=== PATIENT | female | born 1990 | race Caucasian/White ===

== ENCOUNTER 2025-05-30 20:22 | Outpatient (REF) | payer OTHER, SELFPAY ==
--- OUTSIDE RECORDS SUMMARY | 2024-08-19 03:09 | XMS_ITS | Continuity of Care Document ---
Author Organization [facility] Address [address] [place] [address] Phone Care Team Providers Care Insurance Counsel Name Role Phone Fernando Richard Unavailable Unavailable Allergies, Adverse Reactions, Alerts Substance Reaction Status Criticality No Known Allergies Active No Inform ation Procedures Procedure Date OFFICE/OUTPATIENT VISIT, [facility] ROUTINE VENIPUNCTURE PREV VISIT, EST, AGE 18-39 ROUTINE VENIPUNCTURE PREV VISIT, EST, AGE 18-39 OFFICE/OUTPATIENT VISIT, [facility] URINALYSIS NONAUTO W/O SCOPE Advance Directives Directive Yes / No Effective Date File Name No Information Encounters Encounter Description Practice Location Reason(s) For Visit Diagnoses Date Provider Providers Copied on Encounter [facility], [address], [place], [id number], tel:[phone] [facility] No Information Burke Reeves. [address], [place], [id number] , [place]. tel:[phone] OFFICE/OUTPAT IENT VISIT, EST [facility], [address], [place], [id number], [place] tel:[phone] [facility] Infertility (chief complaint) Body mass index [BMI] 38.0-38.9, adultFemale infertility, primaryPCOS (polycystic ovarian syndrome)Obesit y (BMI 35.0-39.9 without comorbidity) 3 Burke Reeves. [address] [place] [address], [id number] , . tel: [phone] PREV VISIT, EST, AGE 18-39 [facility], [address], [place], [id number], tel:[phone] [facility] Annual (chief complaint)lab draw (chief complaint) Encounter for general adult medical examination without abnormal findingsBody mass index [BMI] 39.0-39.9, adult Dec- 3- 3 Toward MD Stokes. [address] [place] [address], [id number] , . tel: [phone] PREV VISIT, EST, AGE 18-39 [facility], [address] [place] [address], [id number], tel:[phone] [facility] annual exam (chief complaint) Encounter for gynecological examination (general) (routine) without abnormal findingsPelvic painBody mass index [BMI]40.0-44.9, adult- STD screen- STD High risk heterosexual behavior 3 Gavino [facility] Nelida. [address] [place] [address], [id number] , . tel: [phone] OFFICE/OUTPAT IENT VISIT, [facility], [address] [place] [address], [id number], tel:[phone] [facility] Est Care (chief complaint) DysuriaBody mass index [BMI] 37.0-37.9, adult 3 Toward MD Stokes. [address] [place] [address], [id number] , . tel: [phone] Family History Family Member Type Diagnosis Age At Onset Father Problem illegal drug use Mother Problem depression Mother Problem Diabetes mellitus Mother Problem Obesity Father Problem alcoholism Payers Payer name Insurance type Covered green party ID Authoriza pierce(s) [employer] CI [id number] Social History Type Description Quantity Date Captured Comments Alcohol Use Details Unknown Caffeine Use Details Unknown Tobacco Use Status No Information Smoking Status No Information Sex Female Sexual Orientation Straight or heterosexual Gender Identity Female Chief Complaint And Reason For Visit No Information Reason For Referral Reason For Referral No Information Plan Of Treatment Date Type Action Status Goal Depression screening. Due on due Goal Unhealthy drug use screening . Due on due Goal Hepatitis C screening. Due o n due Goal PRAPARE ASSESSMENT. Due on due Goal Influenza vaccine. Due on due Goal Lipid panel. Due on due Goal Tdap Vaccine. Due on 2024 due Goal Tdap. Due on due Goal RLP. Due on due Goal HPV. Due on due Goal Tdap. Due on due Goal RLP. Due on due Goal Influenza vaccine. Due on due Goal Lipid panel. Due on due Goal PRAPARE ASSESSMENT. Due on due Goal Tdap Vaccine. Due on 2022 due Goal Depression screening. Due on due Goal Weight-reducing diet educati on completed Goal Hep A. Due on du e Goal Influenza vaccine. Due on due Goal PRAPARE ASSESSMENT. Due on due Goal RLP. Due on due Goal Tdap Vaccine. Due on 2022 due Goal Lipid panel. Due on due Goal Tdap. Due on due Goal Depression screening. Due on due Goal Lifestyle education regardin g diet completed Goal Depression screening. Due on due Goal PRAPARE ASSESSMENT. Due on due Goal Tdap. Due on due Goal Influenza vaccine. Due on due Goal RLP. Due on due Goal Tdap Vaccine. Due on 2022 due Goal Dietary management education , guidance, and counseling completed Goal Depression screening. Due on due Goal PRAPARE ASSESSMENT. Due on due Goal Tdap. Due on due Goal Influenza vaccine. Due on due Goal RLP. Due on due Goal Tdap Vaccine. Due on 2022 due Goal Dietary management education , guidance, and counseling completed Referral Ordered: US EXAM, PELVIC, COMPLETE Appointment date/timeframe: 12/29/2022 ordered History Of Present Illness Encounter Date Complaint History Of Prese nt Illness Infertility The menstrual cy ramesh length is 30 Days(s) Patient not . Presenting / Initial symptoms include hirsutism and infertility. The patient's relevant history is positive for insulin resistance, obesity, oral contraceptive use and polycystic ovary syndrome. Associated symptoms include infertility and menstrual cramping. Pertinent negatives include acne, alopecia, back pain, bleeding between menses, bloating, breast tenderness, clitoral enlargement, constipation, cyclic pelvic pain, decreased libido, difficulty concentrating, difficulty sleeping, dyspareunia, fatigue, galactorrhea, hirsutism, hot flashes, male pattern hair loss, nausea, ovulatory pain, pelvic pain, vaginal dryness, weight loss or voice changes.Additional information: , Has PCOS-saw [facility] and was told to lose weight. Wants . Has lost 30 lbs. Menses q 30 days, 5 days-heavy for 2-3 with clots/cramps. Was on BCPs. Annual Pt is here for a nnual wellness with labs. Pt denies issues or concerns at this time. Pt denies alcohol and tobacco use. //ALBIN Llanos lab draw Labs drawn x1 RA C. 2x2 and bandage applied. //ALBIN Llanos annual exam Currently pregna nt: no. Patient is contemplating . The patient states she uses none for control. Last LMP was 12/08/2022. Her menses is regular with normal flow with a frequency of every other mon. Negative for dysmenorrhea and menorrhagia. Negative for: breast discharge, breast lump(s), breast pain and breast self exam. Additional information: Patient is here for annual exam. States she was Dx with PCOS as a teenager. She gets a menses monthly, but the are irregular. She and her partner have been together for 4 years and would desires a . Neither one has children. States she was seeing Dr. Hussein at [facility] and did not like the care she was receiving. She was to transfer to a different physician, but was told she couldn't. That is why she is establishing care here. She desires to start a work up to determine if she can get in the future. . Est Care Pt here today to est care. Pt states had a previous PCP and then quit and seen Althea Dhaliwal at [facility] and did not like that provider. Pt states in Nov went to urgent care had UTI and thinks its back. Was given ATB in May . Pt c/o foul smelling urine, burning with urination, lower back pain. states symptoms been going on for about 1 month and has gotten worse. Has tried fluids, cranberry juice w/o relief. Pt denies any fevers. Voices no other issues or concerns at this time. Sun. As above, has had s/s for about a month. Has issues with constipation that is not typical for her, no vag d/c, does have PCOS and irregular periods. Denies fever or chills. Has had many UTI in her life, at least once a year of adult life. She is a former smoker quit in 2018 and vaped until 6 mos ago. no EtOH, caffeine 12 -16 oz coffee and also does 4 energy drinks per week. Cannabis is negative, denies otc meds and products. She has painful periods and fertility issues, was told it was all PCOS but has not gotten better with wt loss or rx, got worse with OCP for example. Needs a new WHP. Gets insurance in November so wants to do f/u then. MD LEFTY. Functional Status Date Functional Assessmen t No Information Instructions Date Instruction Additional Infor matcherelle Giving encouragement to exercise Related to Body mass index [BMI] 38.0-38.9, adult Weight-reducing diet education R elated to Body mass index [BMI] 38.0-38.9, adult Giving encouragement to exercise Related to Body mass index [BMI] 39.0-39.9, adult Lifestyle education regarding di et Related to Body mass index [BMI] 39.0-39.9, adult C/O pelvic pain, but does not want OCPs to regulate or help with PCOS as she desires a in the near future. Pelvic sonogram ordered for further evaluation. Recommend Motrin 800mg PRN Related to Pelvic pain Cervical cultures se nt to lab. Patient to call in 1 week for results Related to - STD screen Encouraged monthly B SE. Recommend calcium 1000mg QD. Encouraged good dietary intake and exercise. Laboratory specimens sent to lab. Patient to call in 2 weeks if desires results.Discussed control options and patient desires none as she desires a in the near futureAppt made with Dr. Turk for further evaluation of pelvic pain associated with PCOS, Desires for a in the future. May need assistance with infertility medications. Desires to re-establish care at [facility] if allowed to transfer to Dr. Turk. Related to Encounter for gynecological examination (general) (routine) without abnormal findings Giving encouragement to exercise Related to Body mass index [BMI] 40.0-44.9, adult Dietary management e ducation, guidance, and counseling Related to Body mass index [BMI] 40.0-44.9, adult Dietary management e ducation, guidance, and counseling Related to Body mass index [BMI] 37.0-37.9, adult Giving encouragement to exercise Related to Body mass index [BMI] 37.0-37.9, adult Assessments Type Assessment Date No Information Patient Care Teams Name Effective Dates (start - stop) Status Members No Information
--- OUTSIDE RECORDS SUMMARY | 2025-05-30 13:20 | XMS_ITS | Encounter Summary ---
Author Organization [facility] Address [address] [place] [address] Care Team Providers Care Steak Tenderizer Machine Name Role Phone [facility] Primary Car e Provider Reason for Visit * ReasonCommentsGynecologic Exam Encounter Details DateTypeDepartmentCare Team (Latest Contact Info)Kzzgftgfiwc92/11/2025 1:20 PM ESTProcedure Visit [facility] [address] [place] [phone] Mirza Trimble DO [address] [place] Lao, [facility]11 Well woman exam with routine gynecological exam Social History Tobacco UseTypesPacks/DayYears UsedDateSmoking Tobacco: QxybmqHadndhujhg56 08/17/2013 - 08/17/2018Smokeless Tobacco: NeverAlcohol UseStandard Drinks/Week CommentsNot Currently0 (1 standard drink = 0.6 oz pure alcohol)caffeine intake: pop occasionallyAUDIT-CAnswerDate RecordedQ1: How often do you have a drink containing alcohol?Monthly or less02/04/2023Q2: How many drinks containing alcohol do you have on a typical day when you are drinking?1 or Q3: How often do you have six or more drinks on one occasion?Never02/04/2023HQ-2 AnswerDate RecordedPatient Health Questionnaire-2 Xiiiv216Edinburgh Depression ScaleAnswerDate RecordedEdinburgh Depression Scale Bapok047The thought of harming myself has occurred to me.Never 09/01/2024CommentsNoSex and Gender InformationValueDate RecordedSex Assigned at BirthNot on fileLegal EbsJyfaod33/15/2023 11:06 PM EDTGender IdentityNot on fileSexual OrientationNot on fileOccupationIndustryJob Start Date Job End DateIndependant Nail TechNot on fileNot on fileNot on filedocumented as of this encounter Last Filed Vital Signs Vital SignReadingTime TakenCommentsBlood Isqbncwx131/7205/30/2025 1:17 PM EST Pulse--Temperature--Respiratory Rate--Oxygen Saturation--Inhaled Oxygen Concentration--Gmcxsd493 kg (288 lb)05/30/2025 1:17 PM ESTHeight--Body Mass Index45. 10:03 AM ESTdocumented in this encounter Plan of Treatment DateTypeDepartmentCare Team (Latest Contact Info)Usfqaqilbdg00/16/2026 2:00 PM ESTProcedure Visit [facility] [address] [place] [phone] Mirza Trimble DO [address] [place]ana Lao, [place] [address] NameTypePriorityAssociated DiagnosesOrder SchedulePap SmearPathology and CytologyRoutine Well woman exam with routine gynecological exam Ordered: 05/30/2025HPV DNA probe, amplifiedMicrobiologyRoutine Well woman exam with routine gynecological exam Ordered: 05/30/2025documented as of this encounter Visit Diagnoses Diagnosis Well woman exam with routine gynecological exam Routine gynecological examination documented in this encounter Care Teams Team MemberRelationshipSpecialtyStart DateEnd [facility] [address] [place] [phone] PCP - General02/04/23documented as of this encounter
--- OUTSIDE RECORDS SUMMARY | 2025-05-30 20:28 | XMS_ITS | Encounter Summary ---
Author Organization [facility] Address [address] [facility] [place] [address] Care Team Providers Care Branch Mechanic Name Role Phone [facility] Primary Car e Provider Encounter Details DateTypeDepartmentCare Team (Latest Contact Info)Grxmzkmmqky96/11/2025amboo flowsheet [facility] [address] [place] [address] Mirza Trimble, [address] Rossana Lao, [facility]11 Social History Tobacco UseTypesPacks/DayYears UsedDateSmoking Tobacco: TsmikqUbxphtcuye00 08/17/2013 - 08/17/2018Smokeless Tobacco: NeverAlcohol UseStandard Drinks/Week [...] on one occasion?Never02/04/2023HQ-2 AnswerDate RecordedPatient Health Questionnaire-2 Filpg126Edinburgh Depression ScaleAnswerDate RecordedEdinburgh Depression Scale Jybkl561The thought of harming myself has occurred to me.Never 09/01/2024CommentsNoSex and Gender InformationValueDate RecordedSex Assigned at BirthNot on fileLegal JxuFqdwoi07/15/2023 11:06 PM EDTGender IdentityNot on fileSexual OrientationNot on fileOccupationIndustryJob Start Date Job End DateIndependant Nail TechNot on fileNot on fileNot on filedocumented as of this encounter Plan of Treatment DateTypeDepartmentCare Team (Latest Contact Info)Herljwmkpwi99/16/2026 2:00 PM ESTProcedure Visit [facility] [address] [place] [phone] Mirza Trimble DO [address] Rossana Lao, [place] [id number] documented as of this encounter Visit Diagnoses Not on filedocumented in this encounter Care Teams Team MemberRelationshipSpecialtyStart DateEnd [facility] [address] [place] [phone] PCP - General02/04/23documented as of this encounter
--- OUTSIDE RECORDS SUMMARY | 2025-05-30 20:28 | XMS_ITS | Clinical Summary ---
Author Organization [facility] Address [address] [place] [address] Care Team Providers Care Manufacturing Operations Manager Name Role Phone [facility] Primary Car e Provider Allergies No known active allergies Medications MedicationSigDispense QuantityRefillsLast FilledStart DateEnd DateStatus MV-Min-Fe Fum-FA-DHA ( 1 PO) Take by mouth.Active magnesium oxide (Mag-Ox) 400 mg tablet Take 400 mg by mouth DailyActive Ferrous Sulfate (iron) 325 (65 Fe) MG tablet Take 325 mg by mouth Daily5Active labetalol (Normodyne) 100 MG tablet Take 100 mg by mouth in the morning and 100 mg before bedtime.Active Active Problems No known active problems Encounters DateTypeDepartmentCare OineBstpftxcuwe16/11/2025 1:20 PM ESTProcedure Visit [facility] [address] [place] [address] Mirza Trimble DO Well woman exam with routine gynecological exam05/30/2025amboo flowsheet [facility] [address] [place] [address] Mirza Trimble DO from Last 3 Months Immunizations ImmunizationAdministration DatesNext LfsDmqz60/25/2024 Family History Medical HistoryRelationNameCommentsDiabetesMaternal GrandfatherRoyDiabetes Maternal GrandmotherAnnaBreast cancerMaternal Great-GrandmotherDiabetesMother ShellyDiabetesMother's SisterCathyCancerPaternal GrandmotherThyroid cancer Paternal GrandmotherNo Known MjzlxiyjUvrzdb5KroreadlEgfhZcowytAtiapqzsCjryxv AliveMaternal GrandfatherRoyAliveMaternal GrandmotherAnnaMaternal Great-GrandmotherMotherShellyAliveMother's SisterCathyPaternal GrandmotherSister 2x2 Social History Tobacco UseTypesPacks/DayYears UsedDateSmoking Tobacco: JrlagyHxaagnoizy64 08/17/2013 - 08/17/2018Smokeless Tobacco: Never Tobacco Cessation:Counseling Given: Not Answered Alcohol UseStandard Drinks/WeekCommentsNot Currently0 (1 standard drink = 0.6 oz pure alcohol)caffeine intake: pop occasionallyAUDIT-CAnswerDate RecordedQ1: How often do you have a drink containing alcohol?Monthly or less02/04/2023Q2: How many drinks containing alcohol do you have on a typical day when you are drinking?1 or Q3: How often do you have six or more drinks on one occasion?Never02/04/2023HQ-2AnswerDate RecordedPatient Health Questionnaire-2 Vmktd651Edinburgh Depression ScaleAnswerDate RecordedEdinburgh Depression Scale Ldykh866The thought of harming myself has occurred to me.Never09/01/2024CommentsNoSex and Gender InformationValue Date RecordedSex Assigned at BirthNot on fileLegal TejZidsyi34/15/2023 11:06 PM EDTGender IdentityNot on fileSexual OrientationNot on fileOccupationIndustryJob Start DateJob End DateIndependant Nail TechNot on fileNot on fileNot on file Last Filed Vital Signs Vital SignReadingTime TakenCommentsBlood Quijzxvl042/7211 1:17 PM EST Vdggh227705/27/2024 4:54 PM RABKjbtjmkwyce97.9 ??C (98.4 ??F)05/27/2024 4:54 PM ESTRespiratory Rate--Oxygen Noiorkueas85%05/27/2024 4:54 PM ESTInhaled Oxygen Concentration--Qwrjxg591 kg (288 lb)05/30/2025 1:17 PM LAWDzcrob964.2 cm (5' 7 ) 06/01/2023 10:03 AM ESTBody Mass Index45. 10:03 AM EST Plan of Treatment DateTypeDepartmentCare Team (Latest Contact Info)Ifpwxoyawmh39/16/2026 2:00 PM ESTProcedure Visit [facility] BARONGYAnalisa [address] [place] [phone] Mirza Trimble DO [address] Rossana Lao, [facility]11 Insurance Care Teams Team MemberRelationshipSpecialtyStart DateEnd [facility] [address] [place] [phone] PCP - General02/04/23
== END 2025-05-30 20:23 | disposition home or self-care (01) ==
LOC: LAB 20:22
PROVIDERS: PCP Family Medicine; Visit Provider Obstetrics & Gynecology
DX: Z01.419 Encounter for gynecological examination (general) (routine) without abnormal findings (principal)
CPT/HCPCS: 87624; 88175